=== PATIENT | male | born 1995 | race Caucasian/White ===

== ENCOUNTER 2017-09-21 23:01 | Emergency (ER) | payer MEDICAID ==
[2017-09-21 23:12] VITALS: RESP 20
--- NOTE | 2017-09-21 23:23 | CPEKG ---
Heart Rate: 97 RR Interval: 619 P-R Interval: 144 QRSD Interval: 104 QT Interval: 356 QTC Interval: 452 P Wheeler: 77 QRS Wheeler: 17 T Wave Wheeler: 58 EKG Severity - NORMAL ECG - EKG Impression: SINUS RHYTHM Electronically Signed By: Racheal Murray 22-Sep-2017 07:08:07
--- NOTE | 2017-09-22 00:03 | EDPHY ---
H & P Stated Complaint: SOB, Chest pains for 2 days Time Seen by Provider: 09/21/17 23:23 HPI/ROS: HPI The patient presents with chest pains which he has experienced intermittently for the last few years. He feels some sort of lump in his right chest wall currently and describes a migratory intermittent pattern of pain in which he feels lumps and then has a burning sensation in the location. He says these lumps or just under the skin surface. Tonight, he developed shortness of breath which started slowly and is mild in severity. [facility]. He reports that he smokes 1 pack per day of cigarettes for the last 12 years and does have a history of asthma. He does not have a cough or fever.. REVIEW OF SYSTEMS Constitutional: No fever, no chills. Eyes: No discharge. ENT: No sore throat. Cardiovascular: No chest pain, no palpitations. Respiratory: No cough, no shortness of breath. Gastrointestinal: No abdominal pain, no vomiting. Genitourinary: No hematuria. Musculoskeletal: No back pain. Skin: No rashes. Neurological: No headache. PMHx: History of asthma Soc Hx: Transient, heavy smoking history, history of injection drug use PHYSICAL General Appearance: Alert, no distress Eyes: Pupils equal and round no pallor or injection ENT, Mouth: Mucous membranes moist Chest wall: There is tenderness to the right chest wall at the level of the costochondral junction with no overlying skin changes or edema present. Respiratory: There are no retractions, lungs are clear to auscultation Cardiovascular: Regular rate and rhythm Gastrointestinal: Abdomen is soft and non-tender, no masses, bowel sounds normal Neurological: A&O, moves all extremities Skin: Warm and dry, no rashes Musculoskeletal: Neck is supple non tender Extremities: symmetrical, full range of motion Psychiatric: Patient is oriented X 3, there is no agitation Source: Patient Exam Limitations: No limitations - Personal History Current Tetanus Diphtheria and Acellular Pertussis (TDAP): Yes Tetanus Vaccine Date: 2012 - Medical/Surgical History Hx Asthma: Yes Hx Chronic Respiratory Disease: No Hx Diabetes: No Hx Cardiac Disease: No Hx Renal Disease: No Hx Cirrhosis: No Hx Alcoholism: Yes Hx HIV/AIDS: No Hx Splenectomy or Spleen Trauma: No Other PMH: APPY. heroin abuse. anxiety - Social History Smoking Status: Current every day smoker Constitutional: Initial Vital Signs Temperature (C) 36.6 C 09/21/17 23:08 Heart Rate 89 09/21/17 23:08 Respiratory Rate 20 09/21/17 23:08 Blood Pressure 136/82 H 09/21/17 23:08 O2 Sat (%) 96 09/21/17 23:08 O2 Delivery Mode Room Air Allergies/Adverse Reactions: No Known Allergies Allergy (Verified 04/28/16 22:48) Home Medications: Medication Instructions Recorded Percocet 5/325 (*) 04/28/16 Naloxone HCl [Narcan] 0.4 mg IM ONCE #0 inj 04/29/16 Medical Decision Making - Diagnostics EKG Interpretation: EKG: Complete interpretation has been separately recorded in the [employer] archive. Summary impression: Normal sinus rhythm Imaging Results: Imaging Impressions Chest X-Ray 09/21/17 23:37 Impression: Suspect airways disease with no superimposed pneumonia. Differential Diagnosis: This is a 22-year-old male with history of asthma, 12 pack year smoking history , who has intermittent chest wall pain, now associated with shortness of breath tonight. On arrival, he has normal vital signs, he is not hypoxic. His lungs sound clear. He does not have any cough, rhinorrhea, chest congestion. He does have chest wall tenderness though no overlying skin change. Location is suspicious for costochondritis. Differential diagnoses considered include pneumothorax, asthma exacerbation, costochondritis, pneumonia. He had an EKG and chest x-ray performed in the emergency department which demonstrated likely reactive airways disease. I discussed this with him and have counseled him on smoking cessation. He declines any nebulizer treatments here and I feel this is reasonable given his normal saturations. I have encouraged him to take ibuprofen for presumed costochondritis and he is in agreement with this plan. Departure - Departure Disposition: Home, Routine, Self-Care Clinical Impression: Chest wall pain, Shortness of breath Condition: Good Instructions: Pleurisy (ED) Additional Instructions: I recommend you take ibuprofen 400 mg every 6 hr to treat your symptoms. You should return to the emergency department if your worse in any way. Referrals: [facility],. [Clinic] - As per Instructions
[2017-09-22 00:21] VITALS: BP 140/86; PULSE 87; TEMP 98.1; O2SAT 97
== END 2017-09-22 00:21 | disposition home or self-care (01) ==
DX: R07.89 Other chest pain (principal); R06.02 Shortness of breath; J45.909 Unspecified asthma, uncomplicated; F17.200 Nicotine dependence, unspecified, uncomplicated

== ENCOUNTER 2017-11-16 11:18 | Emergency (ER) | payer MEDICAID ==
[2017-11-16 11:32] VITALS: BP 108/79
--- NOTE | 2017-11-16 12:21 | EDPHY ---
H & P Time Seen by Provider: 11/16/17 11:36 HPI/ROS: CHIEF COMPLAINT: Laceration right hand HISTORY OF PRESENT ILLNESS: 22-year-old male presents to the emergency department with injury to his right hand. The patient punched a addie basket which had some glass in it and injured his right hand. The incident happened 20 min prior to arrival. He is right-hand dominant. His last tetanus shot was in 2012. He denies any other trauma or injury. ROS: Denies numbness or tingling in his fingers, retained foreign body, injury to the right wrist. Past Medical/Surgical History: Substance abuse Social History: Single from [place] Smoking Status: Current every day smoker Physical Exam: On examination the patient has a 1.5 cm laceration to the dorsal aspect of the right hand overlying the 5th MCP joint. He has evidence of tendon laceration which appears complete. No evidence of retained foreign body. No palpable bony tenderness. Full range of motion of his fingers including full extension of the right 5th finger. The other fingers do not appear injured. He does have a very small abrasion to the dorsal aspect of the right hand overlying the 4th MCP joint. Constitutional: Initial Vital Signs Temperature (C) 36.5 C 11/16/17 11:29 Heart Rate 98 11/16/17 11:29 Respiratory Rate 18 11/16/17 11:29 Blood Pressure 108/79 11/16/17 11:29 O2 Sat (%) 96 11/16/17 11:29 O2 Delivery Mode Room Air Allergies/Adverse Reactions: No Known Allergies Allergy (Verified 11/16/17 11:28) Home Medications: Medication Instructions Recorded Albuterol 11/16/17 Cephalexin [Keflex] 500 mg PO QID #28 cap 11/16/17 Flovent 110 MCG Hfa MDI (*) 11/16/17 MDM/Departure - MDM Procedures: Laceration repair. Verbal consent was obtained from the patient. The 1.5 cm laceration on the right hand was anesthetized using 1% lidocaine with epinephrine. The wound was irrigated with saline, draped and explored to its base with a gloved finger. Extensor tendon laceration noted. The wound was repaired with 4 0 Ethilon, 3 sutures. The wound repair was simple. The procedure was performed by myself. ED Course/Re-evaluation: 22-year-old male presents to the emergency department with laceration to his right hand. The wound was repaired, however he did have a tendon laceration noted. He was placed in a splint, given orthopedic hand surgical referral and started on Keflex. His tetanus shot is current. He was given wound care precautions. He will follow up with orthopedic hand surgeon this week to recheck. - Depart Disposition: Home, Routine, Self-Care Clinical Impression: Tendon laceration Laceration of right hand Qualifiers: Encounter type: initial encounter Foreign body presence: without foreign body Qualified Code(s): S61.411A - Laceration without foreign body of right hand, initial encounter Condition: Good Instructions: Care For Your Stitches (ED), Laceration (ED), Tendon Laceration ( ED), Acute Wounds (ED) Additional Instructions: Wound Care Follow-Up: Removal of sutures in 10 days. Suture removal is complimentary in uncomplicated cases. Infection or abnormal findings would require reevaluation by the MD. In that case, you may be billed. Follow up with orthopedic hand surgeon by Tuesday to recheck. Tell them that you have a laceration to your extensor tendon on your right dominant hand overlying her right 5th MCP joint. Take Keflex as prescribed. Return to the emergency department if he notices any signs or symptoms of infection such as redness, swelling, increased pain, fever, purulent drainage. Keep wound dry, clean and protected. Ibuprofen 600 mg every 8 hr as needed for pain. Keep splint and dressing in place and keep them dry until follow-up with orthopedic hand surgeon by Tuesday. Prescriptions: Cephalexin [Keflex] 500 mg PO QID #28 cap Referrals: Musa Sinclair MD [Medical Doctor] - 1-2 days without fail (Orthopedic hand surgeon on-call)
== END 2017-11-16 12:44 | disposition home or self-care (01) ==
PROC: 0HQFXZZ Repair Right Hand Skin, External Approach (ICD-10-PCS; principal; 2017-11-16)
DX: S66.921A Laceration of unspecified muscle, fascia and tendon at wrist and hand level, right hand, initial encounter (principal); F17.200 Nicotine dependence, unspecified, uncomplicated; W25.XXXA Contact with sharp glass, initial encounter
CPT/HCPCS: L3925

== ENCOUNTER 2017-11-30 11:19 | Emergency (ER) | payer MEDICAID ==
[2017-11-30] MEDS ORDERED: CHLORDIAZEPOXIDE 25MG PREPK#6 BTL TAKEHOME ONE (11:47)
--- NOTE | 2017-11-30 11:47 | EDPHY ---
H & P Time Seen by Provider: 11/30/17 11:43 HPI/ROS: CHIEF COMPLAINT: "I just need some Librium" HISTORY OF PRESENT ILLNESS: 22-year-old male history of polysubstance abuse is going to have his [facility] taken [facility] for acute [facility] and opiate withdrawal. Requesting Librium and his mother will take him there. He denies suicidal or homicidal ideation. Denies self-injurious behavior. l PHYSICAL EXAM (Prior to examination, patient consented to physical exam, hands were washed and my usual and customary physical exam procedures followed) 1) GENERAL: Well-developed, well-nourished, alert and oriented. Sleepy easily woken. Appears to be in no acute distress. 2) HEAD: Normocephalic 3) HEENT: sclera anicteric 4) LUNGS: Breathing comfortably. Smoking Status: Current every day smoker Constitutional: Initial Vital Signs Temperature (C) 36.9 C 11/30/17 11:19 Heart Rate 89 11/30/17 11:19 Respiratory Rate 16 11/30/17 11:19 Blood Pressure 130/70 H 11/30/17 11:19 O2 Sat (%) 96 11/30/17 11:19 O2 Delivery Mode Room Air Allergies/Adverse Reactions: No Known Allergies Allergy (Verified 11/16/17 11:28) Home Medications: Medication Instructions Recorded Albuterol 11/16/17 Cephalexin [Keflex] 500 mg PO QID #28 cap 11/16/17 Flovent 110 MCG Hfa MDI (*) 11/16/17 MDM/Departure - MDM ED Course/Re-evaluation: I saw this patient independently based on established practice protocols. Care of patient under supervision of secondary supervising physician Dr Dietz . - Depart Disposition: Home, Routine, Self-Care Clinical Impression: Polysubstance abuse Condition: Good Instructions: Polysubstance Abuse (ED), Chlordiazepoxide (By mouth) Additional Instructions: [facility] directly to the [facility]. Referrals: [facility] [Outside] - 11/30/17 12:00 pm
[2017-11-30 11:54] VITALS: BP 128/68
== END 2017-11-30 12:00 | disposition home or self-care (01) ==
DX: F19.10 Other psychoactive substance abuse, uncomplicated (principal); F17.200 Nicotine dependence, unspecified, uncomplicated

== ENCOUNTER 2018-08-10 05:22 | Emergency (ER) | payer MEDICAID ==
[2018-08-10 05:25] VITALS: BP 136/80
[2018-08-10] MEDS ORDERED: PENICILLIN VK 250MG PREPACK#6 BTL TAKEHOME ONE (05:35)
--- NOTE | 2018-08-10 05:37 | EDPHY ---
H & P Stated Complaint: lower gum infection Time Seen by Provider: 08/10/18 05:33 HPI/ROS: Chief Complaint: Gum infection HPI: 23-year-old male with a history of a mandibular fracture with plate and screws in place is presenting with concerns about a gum infection. Patient states he has fracture about a year ago. Never had the hardware removed because he has been in [facility]. Over the last few days he has been having worsening irritation from the site. No dental pain. No pain with chewing. He has not been able to follow up with a dentist. ROS: 10 systems were reviewed and were negative except those elements noted in the HPI. PMH: Mandible fracture Social History: Positive smoking Family History: [non-contributory] Physical Exam: General: Awake, alert, no acute distress Mouth: Patient has exposed hardware IM his right lower mandible exposed intraorally with some surrounding gingival erythema, no discharge, no fluctuance , no mass, no submandibular deformity or swelling. Skin: No rash - Personal History Current Tetanus/Diphtheria Vaccine: Yes Current Tetanus Diphtheria and Acellular Pertussis (TDAP): Yes Tetanus Vaccine Date: 2012 - Medical/Surgical History Hx Asthma: Yes Hx Chronic Respiratory Disease: No Hx Diabetes: No Hx Cardiac Disease: No Hx Renal Disease: No Hx Cirrhosis: No Hx Alcoholism: Yes Hx HIV/AIDS: No Hx Splenectomy or Spleen Trauma: No Other PMH: APPY. heroin abuse. anxiety. asthma. jaw surgery - Social History Smoking Status: Current every day smoker Constitutional: Initial Vital Signs Temperature (C) 36.8 C 08/10/18 05:22 Heart Rate 114 H 08/10/18 05:22 Respiratory Rate 18 08/10/18 05:22 Blood Pressure 136/80 H 08/10/18 05:22 O2 Sat (%) 95 08/10/18 05:22 O2 Delivery Mode Room Air Allergies/Adverse Reactions: No Known Allergies Allergy (Verified 08/10/18 05:25) Home Medications: Medication Instructions Recorded Wellbutrin 100mg (*) 08/10/18 Medical Decision Making ED Course/Re-evaluation: Patient with gingivitis secondary to retained mandibular plate hardware. Will start on penicillin refer to dentist for follow-up. Departure - Departure Disposition: Home, Routine, Self-Care Clinical Impression: Gingivitis Condition: Good Instructions: Gingivitis (ED) Additional Instructions: Follow up later today at [facility]. Referrals: [facility] [Outside] - As per Instructions
== END 2018-08-10 05:43 | disposition home or self-care (01) ==
DX: K05.10 Chronic gingivitis, plaque induced (principal); F41.9 Anxiety disorder, unspecified; F17.200 Nicotine dependence, unspecified, uncomplicated

== ENCOUNTER 2018-09-21 17:44 | Emergency (ER) | payer MEDICAID ==
[2018-09-21] MEDS ORDERED: AMPICILLIN/SULBACTAM 3 GM in NS 100 ML IV ONE (19:21)
[2018-09-21] MEDS ORDERED: AMOXICILLIN/CLAVULANATE POT 875/125 MG TAB PO ONE (19:58)
--- NOTE | 2018-09-21 19:58 | EDPHY ---
H & P Stated Complaint: l lower dental pain/mod swelling Time Seen by Provider: 09/21/18 19:16 HPI/ROS: Chief complaint: Dental infection History of present illness: This is a 23-year-old male who presents to the emergency department concerned he has a dental infection. Patient has a history of a fractured jaw with retained hardware reported on the right. He also reports a persistent open wound to his right lower gum line. Patient reports over the last day he has developed pain and swelling the left side of his jaw. Denies precipitating factors. He denies alleviating factors. He denies other associated signs or symptoms including no fevers, no difficulty opening or closing his mouth, swallowing or breathing. Review of systems: A 10 point review of systems was obtained and other than described above was negative. - Personal History Current Tetanus Diphtheria and Acellular Pertussis (TDAP): Yes Tetanus Vaccine Date: 2012 - Medical/Surgical History Hx Asthma: Yes Hx Chronic Respiratory Disease: No Hx Diabetes: No Hx Cardiac Disease: No Hx Renal Disease: No Hx Cirrhosis: No Hx Alcoholism: Yes Hx HIV/AIDS: No Hx Splenectomy or Spleen Trauma: No Other PMH: APPY. heroin abuse. anxiety. asthma. jaw surgery - Social History Smoking Status: Current every day smoker - Physical Exam Exam: General Appearance: Alert and no distress. Eyes: Pupils equal and round no injection. ENT: Mild swelling around the left lower molar and premolar region. No trismus. No drooling. No hoarseness. No stridor. Respiratory: Chest is non tender, lungs are clear to auscultation. Cardiac: regular rate and rhythm Musculoskeletal: Neck is supple and non tender. Extremities have full range of motion and are non tender. Skin: Mild edema to the left mandibular body region. No fluctuance or induration on palpation. The submandibular space is unremarkable. Constitutional: Initial Vital Signs Temperature (C) 36.5 C 09/21/18 17:54 Heart Rate 98 09/21/18 17:54 Respiratory Rate 18 09/21/18 17:54 Blood Pressure 106/85 H 09/21/18 17:54 O2 Sat (%) 95 09/21/18 17:54 O2 Delivery Mode Room Air Allergies/Adverse Reactions: No Known Allergies Allergy (Verified 09/21/18 17:54) Home Medications: Medication Instructions Recorded Wellbutrin 100mg (*) 08/10/18 Amoxicillin/Clavulanate Pot 875 mg PO BID 10 Days tab 09/21/18 [Augmentin 875 MG TAB (*)] Medical Decision Making ED Course/Re-evaluation: Patient seen under the supervision of my secondary supervising physician Dr. Taj Correa. Patient presents to the emergency department with what appears to be developing a dental infection. He is nontoxic. He is given a dose of IV Unasyn. He will be discharged home on Augmentin. He is given referral information to a dentist. Strict return precautions were given. The patient voiced understanding and agreement with plan. Differential Diagnosis: Included but not limited to cellulitis, periodontal abscess, Harjit's angina - Data Points Medications Given: Discontinued Medications Amoxicillin/Clavulanate Potassium (Augmentin 875mg) 875 mg PO EDNOW ONE PRN Reason: Protocol Stop: 09/21/18 19:59 Last Admin: 09/21/18 20:29 Dose: 875 mg Ampicillin Sodium/Sulbactam (Sodium 3 gm/ Sodium Chloride) 100 mls @ 200 mls/ hr IV EDNOW ONE PRN Reason: Protocol Stop: 09/21/18 19:50 Last Admin: 09/21/18 19:59 Dose: 100 mls Departure - Departure Disposition: Home, Routine, Self-Care Clinical Impression: Dental abscess Condition: Good Instructions: Dental Abscess (ED) Additional Instructions: Follow-up with a dentist for continued evaluation and care Take antibiotics as prescribed until finished even if feeling better You can use ibuprofen 600 mg every 6 hr for pain and swelling In addition you can take 650 mg of Tylenol every 6 hr for pain If symptoms worsen or new symptoms develop return to the emergency room for recheck Referrals: NONE *PRIMARY CARE P,. [Primary Care Provider] - As per Instructions [facility] [Outside] - As per Instructions [facility] [Outside] - As per Instructions [facility] [Outside] - As per Instructions Dental [facility] [Outside] - As per Instructions [facility] [Outside] - As per Instructions Prescriptions: Amoxicillin/Clavulanate Pot [Augmentin 875 MG TAB (*)] 875 mg PO BID 10 Days tab
[2018-09-21 20:35] VITALS: BP 110/76
== END 2018-09-21 20:35 | disposition home or self-care (01) ==
DX: K04.7 Periapical abscess without sinus (principal); F41.9 Anxiety disorder, unspecified; F17.200 Nicotine dependence, unspecified, uncomplicated
CPT/HCPCS: 96365; J0295

== ENCOUNTER 2018-10-29 17:06 | Emergency (ER) | payer MEDICAID ==
--- NOTE | 2018-10-29 17:27 | EDPHY ---
H & P Stated Complaint: pt wants refills of all his meds Time Seen by Provider: 10/29/18 17:24 - Personal History Current Tetanus Diphtheria and Acellular Pertussis (TDAP): Yes Tetanus Vaccine Date: 2012 - Medical/Surgical History Hx Asthma: Yes Hx Chronic Respiratory Disease: No Hx Diabetes: No Hx Cardiac Disease: No Hx Renal Disease: No Hx Cirrhosis: No Hx Alcoholism: Yes Hx HIV/AIDS: No Hx Splenectomy or Spleen Trauma: No Other PMH: APPY. heroin abuse. anxiety. asthma. jaw surgery - Social History Smoking Status: Current every day smoker Constitutional: Initial Vital Signs Temperature (C) 37.4 C 10/29/18 17:12 Heart Rate 92 10/29/18 17:12 Respiratory Rate 18 10/29/18 17:12 Blood Pressure 120/75 10/29/18 17:12 O2 Sat (%) 95 10/29/18 17:12 O2 Delivery Mode Room Air Allergies/Adverse Reactions: No Known Allergies Allergy (Verified 10/29/18 17:11) Home Medications: Medication Instructions Recorded Albuterol Sulfate [Albuterol 8.5 gm IH QID #1 hfa.aer.ad 10/29/18 Sulfate Hfa] Cephalexin [Keflex (RX)] 500 mg PO TID #30 cap 10/29/18 Fluticasone Propionate [Flovent 12 gm IH BID #1 aer.w.adap 10/29/18 Hfa] Ibuprofen [Motrin] 800 mg PO Q8 #20 tab 10/29/18 Medical Decision Making ED Course/Re-evaluation: CHIEF COMPLAINT: Med refill, sore throat HISTORY OF PRESENT ILLNESS: The patient is a 23 y/o male with a history of heroin abuse requesting medication refills prior to going to detox. The patient uses an albuterol and Flovent inhaler. He also has a sore throat and is concerned that he has strep throat. In addition to his other complaints, he also is requesting Librium for the detox. No fever, headache, body aches, lightheadedness, chest pain, heart palpitations, shortness of breath, cough, abdominal pain, urinary or bowel complaints, numbness, paresthesias. REVIEW OF SYSTEMS: A 10 point review of systems was performed and is negative with the exception of the elements mentioned in the history of present illness. PHYSICAL EXAM: HR, BP, O2 Sat, RR. Temp noted General Appearance: Alert, well hydrated, appropriate, and non-toxic appearing. Head: Atraumatic without scalp tenderness or obvious injury Eyes: Pupils equal, round, reactive to light and accommodation, EOMI, no trauma , no injection. Ears: Clear bilaterally, no perforation, normal landmarks Nose: Atraumatic, no rhinorrhea, clear. Throat: Bilateral tonsillar exudates, erythema, and swelling. No lesions and mucus membranes moist. Neck: Supple, 2+ carotid upstroke, nontender, no lymphadenopathy. Respiratory: No retractions, no distress, no wheezes, and no accessory muscle use. Lungs are clear to auscultation bilaterally. Cardiovascular: Regular rate and rhythm, no murmurs, rubs, or gallops. Bilateral carotid, radial, dorsalis pedis, and posterior tibial pulses intact. Good capillary refill all extremities. Gastrointestinal: Abdomen is soft, nontender, non-distended, no masses, no rebound, no guarding, no peritoneal signs. Musculoskeletal: Normal active ROM of all extremities, atraumatic. Neurological: Alert, appropriate, and interactive. The patient has normal DTRs and non-focal cranial nerves, motor, sensory, and cerebellar exam. Skin: No rashes, good turgor, no nodules on palpation. Past medical history: Heroin abuse, anxiety, asthma Past surgical history: Appendectomy and jaw surgery Family history: Denies Social history: Lives in [place], single, not employed DIAGNOSTICS/PROCEDURES/CRITICAL CARE TIME: Not indicated. DIFFERENTIAL DIAGNOSIS: The differential diagnosis for the patient's sore throat includes but is not limited to tonsillitis, tonsillar abscess, pharyngitis, viral syndrome, bacterial infection, . The differential diagnosis for the patient's complaints includes but is not limited to medication refill and heroin withdrawal. MEDICAL DECISION MAKING: The patient is a 23 y/o male with a history of heroin abuse requesting medication refills prior to going to detox. The patient uses an albuterol and Flovent inhaler. He also has a sore throat and is concerned that he has strep throat. In addition to his other complaints, he also is requesting Librium for the detox. On exam he has bilateral tonsillar exudates, erythema, and swelling consistent with tonsillitis. I will prescribe him Keflex for the tonsillitis. I will also prescribe him Albuterol, Flovent, and Librium. Return precautions provided; patient is comfortable with this plan. Departure - Departure Disposition: Home, Routine, Self-Care Clinical Impression: Tonsillitis, Medication refill, Heroin abuse Condition: Good Instructions: Tonsillitis (ED) Additional Instructions: 1. Take Keflex as prescribed for tonsillitis. 2. Use the albuterol and Flovent inhaler as prescribed. 3. Take Librium as prescribed for heroin withdrawal. 4. Take Motrin as prescribed for pain. 5. Return to the emergency department immediately for fever, vomiting, confusion , headache, abdominal pain or other worsening of condition. Referrals: [facility],. [Clinic] - As per Instructions [facility] [Outside] - As per Instructions Prescriptions: Albuterol Sulfate [Albuterol Sulfate Hfa] 8.5 gm IH QID #1 hfa.aer.ad Cephalexin [Keflex (RX)] 500 mg PO TID #30 cap Fluticasone Propionate [Flovent Hfa] 12 gm IH BID #1 aer.w.adap Ibuprofen [Motrin] 800 mg PO Q8 #20 tab Report Scribed for: Pelon Larsen Report Scribed by: Jessica Zapata Date of Report: 10/29/18 Time of Report: 17:34
[2018-10-29] MEDS ORDERED: CEPHALEXIN 500 MG CAP PO ONE (17:31)
[2018-10-29] MEDS ORDERED: CHLORDIAZEPOXIDE 25MG PREPK#6 BTL TAKEHOME ONE (17:56)
[2018-10-29 18:11] VITALS: BP 138/69
== END 2018-10-29 18:11 | disposition home or self-care (01) ==
DX: Z76.0 Encounter for issue of repeat prescription (principal); J03.90 Acute tonsillitis, unspecified; F11.10 Opioid abuse, uncomplicated